=== PATIENT | female | born 1970 | race Caucasian/White ===

== ENCOUNTER → 2016-08-28 | Outpatient (CLI) | payer BC | LOC: MAMO 08:30 | DX: Z12.31 Encounter for screening mammogram for malignant neoplasm of breast (principal) | CPT/HCPCS: G0202 ==

== ENCOUNTER → 2016-09-18 | Outpatient (CLI) | payer BC | LOC: MAMO 09:25 | DX: R22.2 Localized swelling, mass and lump, trunk (principal); J30.9 Allergic rhinitis, unspecified; R53.83 Other fatigue; Z01.419 Encounter for gynecological examination (general) (routine) without abnormal findings | CPT/HCPCS: 76641-RT; G0206 ==